=== PATIENT | female | born 1955 | race Caucasian/White ===

== ENCOUNTER 2017-05-08 16:41 | Inpatient (IN) ==
[2017-05-08] MEDS ORDERED: ASPIRIN PO STA (17:05)
--- NOTE | 2017-05-08 17:20 | ED EKG INTERP ---
This chart was entered by Coreen Garcia Scribe, acting as scribe for Virginie Mello MD. EKG Interpretation - EKG Time of EKG reading by physician:: 16:51 EKG Read and Signed by:: Virginie Mello EKG Interpretation (*Must complete 3 of following elements*): Abnormal Rate: 90 (T wave abnormality, consider inferior ischemia) Rhythm: NSR Attestation - Physician/ ESEQUIEL Attestation Patient care was provided by Advanced Practice Provider:: No The physician spent face to face time with patient:: Yes Advanced Practice Provider documentation review:: Supervising physician onsite and consulted in the evaluation and care of this patient. The physician did have a face to face encounter with the patient. This chart was documented by the indicated scribe, (Coreen Garcia Scribe) and accurately reflects the services I performed and decisions made by me, Virginie Mello MD, as attested by the provider's signature.
[2017-05-08 17:43] LABS: INR 0.95; PROTIME 9.9 Seconds (9.2-11.7); PTT 22.3 Seconds (22.0-36.0)
[2017-05-08 17:44] LABS: HEMOGLOBIN 5.3 g/dL (12.0-16.0)
[2017-05-08 17:45] LABS: BASO% 0.6 % (0.0-0.8); EOS# 0.16 X1000 (0.0-0.7); EOS% 2.3 % (0.0-10.0); HEMATOCRIT 18.2 % (37.0-47.0); IMM GRAN# 0.05 X1000 (0.0-0.04); IMM GRAN% 0.7 % (0.0-0.5); LYMPH# 1.42 X1000 (1.2-3.4); LYMPH% 20.5 % (20.5-51.1); MCH 26.6 PG (27-31); MCHC 29.1 g/dL (33-37); MCV 91.5 FL (81-99); MONO# 0.36 X1000 (0.11-0.59); MONO% 5.2 % (1.7-9.3); MPV 8.9 FL (7.4-10.4); NEUT% 70.7 % (42.2-75.2); PLT 311 X1000 (130-400); RBC 1.99 XMIL (4.2-5.4)
[2017-05-08 17:47] LABS: MANUAL DIFF NEEDED? NO
[2017-05-08] MEDS ORDERED: BENADRYL PO ONE (17:56)
[2017-05-08 18:02] LABS: AGAP 12; ALBUMIN 3.8 g/dL (3.5-5.0); ALKALINE PHOSPHATASE 77 U/L (32-104); BUN 28 mg/dL (8-22); CALCIUM 8.6 mg/dL (8.8-10.2); CHLORIDE 97 mmol/L (98-107); CK PROFILE 38 U/L (24-173); COSMO 278; GOT 11 U/L (10-30); GPT 12 U/L (10-36); MAGNESIUM 1.7 mg/dL (1.5-2.7); POTASSIUM 4.2 mmol/L (3.5-5.1); SODIUM 135 mmol/L (136-145); TCO2 26 mmol/L (25-35); TOTAL BILIRUBIN 0.14 mg/dL (0.20-1.00); TOTAL PROTEIN 6.3 g/dL (6.3-8.3)
--- NOTE | 2017-05-08 18:02 | PROVIDER DOCUMENTATION ---
HPI-Abdominal Pain/GI Problem - General Chief Complaint: Shortness of Breath Stated Complaint: CP/SOB Time Seen by Provider: 05/08/17 17:34 Source: patient Allergies/Adverse Reactions: Patient Allergies Allergy/AdvReac Type Severity Reaction Status Date / Time morphine Allergy Mild RASH Verified 05/08/17 18:05 sitagliptin [From Januvia] Allergy SOB, Verified 05/08/17 18:05 muscle weakness hydrocodone bitartrate * AdvReac Intermediate NAUSEA/VOMI Verified 05/08/17 18: 05 [From Lorcet 10] TING ibuprofen AdvReac Mild dizzy Verified 05/08/17 18:05 Home Medications: Home Medication List Medication Instructions Recorded Confirmed Last Taken Type Metformin [Glucophage] 1,000 mg PO BID #60 tablet 05/06/14 05/08/17 05/08/17 09: 30 Rx Hydrochlorothiazide 25 mg PO DAILY 01/14/16 05/08/17 05/08/17 09:30 History Pravastatin Sodium 40 mg PO QHS 01/14/16 05/08/17 05/07/17 21:00 History Allopurinol 0 mg PO DAILY 05/08/17 05/08/17 05/08/17 09:30 History Budesonide/Formoterol Fumarate 10.2 gm IH BID 05/08/17 05/08/17 Unknown History [Symbicort 160-4.5 Mcg Inhaler] Oxycodone HCl/Acetaminophen 1 each PO Q8HR PRN 05/08/17 05/08/17 Unknown History [Percocet 10-325 mg Tablet] Quetiapine Fumarate [Seroquel] 300 mg PO QHS 05/08/17 05/08/17 05/07/17 21:00 History - History of Present Illness-ABD Nature of Presenting Problems: Mrs Kramer presents with a one week history of shortness of breath, chest pain and black tarry stools. She has had previous episodes of bleeding in the past where she required blood transfusions. She is a chronic smoker and diabetic. Patient will be admitted for colonoscopy and blood transfusion. Quality of Pain: reports: dull (worse with exertion) Severity in ED: reports: mild Onset/Duration: reports: gradual Timing: reports: still present Modifying Factors: improves with: movement Dark Stools Present?: reports: maroon, black, tarry Rectal Bleeding: denies: blood streaks on stool, bloody diarrhea Rectal Pain: reports: none Emesis Description: reports: none Bruising or Bleeding Gums?: No Similar Symptoms Previously?: Yes Recently seen or treated by another doctor?: No Review of Systems - Adult - REVIEW OF SYSTEMS - ADULT Constitutional: reports: no symptoms reported, fatique. denies: chills, fever Eyes: reports: no symptoms reported Ears, Nose, Mouth & Throat: reports: no symptoms reported Cardiovascular: reports: chest pain Respiratory: reports: dyspnea on exertion, shortness of breath. denies: hemoptysis Gastrointestinal: reports: see HPI (Black tarry stools) Genitourinary: reports: no symptoms reported Musculoskeletal: reports: no symptoms reported Integumentary: reports: no symptoms reported Neurological: reports: no symptoms reported Psychiatric: reports: no symptoms reported Endocrine: reports: no symptoms reported Hematologic/Lymphatic: reports: no symptoms reported Allergic/Immunologic: reports: no symptoms reported All Other Systems: Reviewed and Negative Past History - Adult - PAST MEDICAL HISTORY-ADULT Review of Records: reports: Old Records Reviewed, Nursing Assessment Review, Medications Reviewed, Social history reviewed & non-contributory. Major Childhood Illnesses: reports: denies history Cardiovascular: reports: HTN Respiratory: reports: COPD Gastrointestinal: reports: denies history Obstetrical/Gynecological: reports: denies history Genitourinary: reports: denies history Musculoskeletal: reports: denies history Neurological: reports: denies history Psychiatric: reports: anxiety Endocrine/Immune: reports: Diabetes Other Conditions: reports: denies history - PRIOR SURGERIES/PROCEDURES Surgical/Procedure History: reports: appendectomy, BTL, tonsillectomy - PRIOR HOSPITALIZATIONS Prior Hospitalizations: reports: none - IMMUNIZATION STATUS Childhood Immunizations: See Nurse Assessment Flu Vaccine: See Nurse Assessment - FAMILY HISTORY Family History: reviewed, not pertinent - SOCIAL HISTORY Smoking: cigarettes Provider spent 3-5 mins advising pt. on dangers of tobacco.: Discussed manners to quit use, and f/u contacts for add'l counseling. Physical Exam-General - PHYSICAL EXAM-ADULT Initial Vital Signs Reviewed: Yes - CONSTITUTIONAL General Appearance: alert (pale), no apparent distress - EYES Eyes: PERRL/EOMI - HEAD, EARS, NOSE, MOUTH & THROAT HENMT: normocephalic/atraumatic - NECK Neck: non-tender - RESPIRATORY Respiratory: chest non-tender, lungs clear - CARDIOVASCULAR Cardiovascular: normal peripheral pulses, regular rate, rhythm - GASTROINTESTINAL (ABDOMEN) Abdominal Exam: normal bowel sounds, non tender, soft - LYMPHATIC Lymphatic: no adenopathy - MUSCULOSKELETAL Extremity: normal range of motion - SKIN Integumentary: pallor - NEUROLOGIC Neurologic: grossly normal - PSYCHIATRIC Psych/Mental Status: normal mood/affect, normal thought content, normal thought process Progress - PLAN OF CARE/RESULTS Progress/Plan/Lab Results: Vital Signs - 8 hr 05/08/17 17:01 Temperature 98.5 F Pulse Rate 93 H Respiratory Rate 22 Blood Pressure 132/79 O2 Sat by Pulse Oximetry 98 Laboratory Results - last 24 hr 05/08/17 05/08/17 05/08/17 16:57 17:02 17:02 WBC 6.92 RBC 1.99 L Hgb 5.3 L* Hct 18.2 L MCV 91.5 MCH 26.6 L MCHC 29.1 L RDW Std Deviation 15.2 H Plt Count 311 MPV 8.9 Immature Gran % (Auto) 0.7 H Neut % (Auto) 70.7 Lymph % (Auto) 20.5 Mcdonald % (Auto) 5.2 Eos % (Auto) 2.3 Baso % (Auto) 0.6 Immature Gran # (Auto) 0.05 H Neut # (Auto) 4.89 Lymph # (Auto) 1.42 Mcdonald # (Auto) 0.36 Eos # (Auto) 0.16 Baso # (Auto) 0.04 Segmented Neutrophils Not Reportable PT 9.9 INR 0.95 PTT (Actin FS) 22.3 POC Glucose 153 H Orders Category Date Time Status Cardiac Monitoring DIRECTED Care 05/08/17 17:05 Active FSBS [Finger Stick Blood Sugar (ED)] DIRECTED Care 05/08/17 17:07 Active Oxygen Therapy- ED Nursing DIRECTED Care 05/08/17 17:05 Active Saline Loc NOW Care 05/08/17 17:05 Active Transfuse .Give-Transfuse Care 05/08/17 17:56 Active CHEST-1 VIEW [RAD] Stat Exams 05/08/17 17:05 Taken CBC WITH ELECTRONIC DIFF [HEME] Stat Lab 05/08/17 17:02 Completed CK PROFILE [SP CHEM] Stat Lab 05/08/17 17:02 Received COMPREHENSIVE METABOLIC PANEL [CHEM] Stat Lab 05/08/17 17:02 Received D-DIMER [CHEM] Stat Lab 05/08/17 17:02 Received MAGNESIUM [CHEM] Stat Lab 05/08/17 17:02 Received PRBC [IRRADIATED LRPC (RED CELLS)] [BBK] Stat Lab 05/08/17 17:57 Uncollected PRO B-NATRIURETIC PEPTIDE Stat Lab 05/08/17 17:02 Received PROTIME WITH INR [COAG] Stat Lab 05/08/17 17:02 Completed PTT [COAG] Stat Lab 05/08/17 17:02 Completed TROPONIN T Stat Lab 05/08/17 17:02 Received TYPE & SCREEN [BBK] Stat Lab 05/08/17 17:53 Uncollected Aspirin Med 05/08/17 17:05 Discontinued 325 mg PO STAT STA Diphenhydramine [Benadryl] Med 05/08/17 17:56 Discontinued 50 mg PO PREMED ONE EKG [EKG] Stat Ther 05/08/17 17:05 Ordered Result Diagrams: 05/08/17 17:02 05/08/17 17:02 - REASSESSMENT Reassessment #1 Time Reassessed: 18:12 (Ordered 3 units of PRBC - informed patient that she will be admitted for need of colonoscopy.) Reassessment #2 Time Reassessed: 18:39 (Patient stable. Discussed with Dr. Gorman whom will admit patient to the hospital. Currently patient is stable and in no acute distress. ) Departure - Departure Date of Disposition Decision: 05/08/17 Time of Disposition Decision: 18:13 DIAGNOSIS: Upper GI bleed Disposition: ADMITTED INPATIENT 09 Certified Medical Emergency: Emergent Condition: Serious Referrals and Follow-Ups: Pito Montenegro [Primary Care Provider] - - Critical Care Note This patient required my direct & personal management of CC.: No Attestation - Physician/ ESEQUIEL Attestation The physician spent face to face time with patient:: Yes Advanced Practice Provider documentation review:: Supervising physician onsite and consulted in the evaluation and care of this patient. The physician did have a face to face encounter with the patient.
--- NOTE | 2017-05-08 18:03 | Diag Imaging Result Doc PS360 ---
EXAM: CHEST-1 VIEW - 05/08/2017 HISTORY: CP TECHNIQUE: Portable chest 5:38 PM COMPARISON: 01/24/2016 FINDINGS: Heart size appears within normal limits. There is mild prominence of vascular interstitial markings, some which appears to be chronic. There is no dense consolidation, substantial pleural effusion, or pneumothorax identified. IMPRESSION: Mild prominence of vascular interstitial markings, some which appears to be chronic. Superimposed mild pulmonary edema cannot be excluded. Electronically signed by Kendall Venegas 05/08/2017 6:01 PM
[2017-05-08] MEDS ORDERED: PROTONIX IV SCH (18:15)
[2017-05-08] MEDS ORDERED: SODIUM CHLORIDE 0.9% INJ SCH (18:15)
[2017-05-08] MEDS ORDERED: BENADRYL ONE (19:22)
[2017-05-08] MEDS ORDERED: DILAUDID IV PRN (20:27)
[2017-05-08] MEDS ORDERED: PROTONIX 80 MG in NS 80 ML IV ONE (20:34)
[2017-05-08] MEDS ORDERED: DILAUDID ONE (23:07)
[2017-05-08] MEDS: PROTONIX 80 MG in NS 80 ML IV SCH (23:15)
[2017-05-08] MEDS ORDERED: NS 500 ML IV ONE (23:23)
[2017-05-08] MEDS ORDERED: DUONEB (A & A) INH PRN (23:35)
[2017-05-08] MEDS ORDERED: NS 1,000 ML IV ONE (23:35)
[2017-05-09] MEDS: HUMALOG SUBQ SCH ×5 (00:02→21:58)
[2017-05-09 00:16] LABS: HEMATOCRIT 23.9 % (37.0-47.0); HEMOGLOBIN 7.4 g/dL (12.0-16.0)
[2017-05-09 00:55] LABS: IRON SATURATION 4 %; TIBC 431 ug/dL; TOTAL IRON 16 ug/dL (49-151); UNBOUND IRON 415 ug/dL (112-346)
[2017-05-09 01:05] LABS: FERRITIN 12 ng/mL (13-150)
[2017-05-09] MEDS ORDERED: OFIRMEV 1000 MG/ISOTONIC SOLN 1,000 MG/100 ML BOTTLE IV ONE (02:02)
[2017-05-09 02:19] LABS: URINE CULTURE NEEDED? NO; URINE MICRO REVIEW NEEDED? NO; URINE SOURCE CLEAN CATCH
[2017-05-09 02:23] LABS: BILIRUBIN URINE NEGATIVE (NEGATIVE); BLOOD URINE NEGATIVE (NEGATIVE); COLOR YELLOW; GLUCOSE URINE NEGATIVE (NEGATIVE); LEUKOCYTES URINE NEGATIVE (NEGATIVE); NITRITE URINE NEGATIVE (NEGATIVE); PROTEIN URINE NEGATIVE (NEGATIVE); SP GRAVITY URINE 1.015; TURBIDITY URINE CLEAR (CLEAR); UR EPITHELIAL CELLS <10 /HPF (<10); URINE BACTERIA NEGATIVE /HPF; URINE RBC <10 /HPF (<10); URINE WBC <10 /HPF (<10); UROBILINOGEN URINE NORMAL (NORMAL)
[2017-05-09] MEDS ORDERED: NS 500 ML ONE (02:51)
--- NOTE | 2017-05-09 03:36 | HISTORY AND PHYSICAL ---
PRIMARY CARE PROVIDER: Dr. Montenegro. TIME: 8 p.m. CHIEF COMPLAINT: Shortness of breath. HISTORY OF PRESENT ILLNESS: Ms. Kramer is a 61-year-old, female with a past medical history of COPD, diabetes mellitus type 2, hypertension, schizophrenia, and previous gastrointestinal bleeding. It does appear back in January of 2013 that the patient was admitted for gastrointestinal bleeding. This was thought at first to be an upper GI bleed, though upon reviewing the patient's EGD report, it does appear that they found esophageal ulcers and gastritis as well as duodenitis but no active or recent findings of bleeding. She did subsequently undergo a colonoscopy a few days later for which colon polyps were found and removed, though there was no evidence of active or recent bleeding as well. The patient states that for 1-2 weeks that she has had increasing fatigue and shortness of breath. The patient does state that she is supposed to be on home O2 nasal cannula at 2 L all the time but normally only wears this at night. She states that over the past week and a half, her shortness of breath and use of her oxygen has increased. She states now that any time that she gets up and walks a very short distance, such as to the bathroom, she becomes very short of breath. She also reports some lightheadedness and dizziness. She does report onset of intermittent melena over the past week as well and reports a lower abdominal pain that is intermittent and seems to be worse when she is having a bowel movement. She reports this is a pressure and sharp type pain in nature, though she denies any nausea or vomiting. The patient states that she does have frequent problems with swelling in her legs and does take Lasix as needed for this. She also reports that she normally takes a baby aspirin 81 mg daily, though has only taken this approximately 3 times in the past week. She denies any other [id number] medication use and has not had any recent changes in her medicines except for a new prescription for Januvia for which she states that she stopped taking approximately 2 weeks ago due to she felt as though it was making her not feel well. She denies any chest pain. She did report a slight headache with her dizziness as well. She denies any cough, fever, body aches, or chills. She reports that she normally has a bowel movement about 3 times per week and has not had a significant increase in this at this time. She denies any dysuria or urinary frequency other than her neuropathy pain in her legs and her reported history of having frequent problems with swelling. She denies any other pain, numbness, or tingling in the extremities. Upon evaluation in the ER, the patient was found to be anemic with a hemoglobin of 5.3 and hematocrit of 18.2. A Hemoccult stool has not performed at this time. We are awaiting those results, though given the patient's report of melena, we suspect an upper gastrointestinal bleed as well as given her history of a previous GI bleed and findings of esophageal ulcers, gastritis, and duodenitis. The ER physician did notify Dr. Rg of the patient and he is aware. A consult has been placed for him. We will transfuse the patient at this time and will admit her for further treatment and evaluation of upper gastrointestinal bleeding. REVIEW OF SYSTEMS: A 12 point review of systems was conducted with the patient and all were negative except for pertinent positives mentioned above in the HPI. PAST MEDICAL HISTORY: 1. Diabetes mellitus type 2. 2. Chronic respiratory failure. 3. COPD, currently on home oxygen with nasal cannula at 2 L. 4. Hypertension. 5. Schizophrenia. 6. History of previous gastrointestinal bleeding. 7. History of colon polyps. 8. Esophageal ulcer. 9. Gastritis. 10. Duodenitis. 11. Pancreatitis. 12. Nicotine dependence. PAST SURGICAL HISTORY: 1. Appendectomy. 2. Tubal ligation. 3. Tonsillectomy. 4. EGD. 5. Colonoscopy. SOCIAL HISTORY: The patient is a current smoker. She reports that for 41 years , she did smoke up to 3 to 4 packs of cigarettes per day, though in the last 3-4 weeks, she has weaned herself down to a half a pack at this time. She denies any alcohol or illicit drug use. FAMILY HISTORY: Positive for her mother having a history of larynx cancer. Her father had a history of cirrhosis of the liver secondary to alcohol abuse. There is a history of brain cancer in 1 of her grandmothers. ALLERGIES: Patient reports allergies to morphine, Januvia, Lorcet, and ibuprofen. HOME MEDICATIONS: 1. Allopurinol 1 p.o. daily. At this time, the patient does not know the exact dosage strength. 2. Symbicort 160/4.5 mcg inhaler 1 puff inhaled daily. 3. Hydrochlorothiazide 25 mg p.o. daily. 4. Metformin 1000 mg p.o. b.i.d. 5. Percocet 10 mg p.o. q.8 hours p.r.n. for pain. 6. Pravastatin 40 mg p.o. at bedtime. 7. Seroquel 300 mg p.o. at bedtime. 8. Aspirin 81 mg p.o. daily. 9. Lasix that the patient reports that she takes as needed for swelling in her legs. DIAGNOSTIC DATA/LABORATORY RESULTS: White blood cell count 6.92, hemoglobin 5.3 , hematocrit 18.2, platelet count 311,000. PT 9.9, INR 0.95, PTT 22.3. D-dimer 1.17. Sodium 135 , potassium 4.2, chloride 97, bicarb 26, BUN 28, creatinine 0.8, glucose 137, calcium 8.6, magnesium 1.7. Liver function tests are within normal limits. CK 38, troponin less than 0.01. ProBNP is 290. EKG showed normal sinus rhythm with a T-wave abnormality, at a rate of 90 with a QTc of 457. Chest x-ray showed mild prominence of vascular interstitial markings, some of which appear to be chronic. Superimposed mild pulmonary edema cannot be excluded. PHYSICAL EXAMINATION: VITAL SIGNS: Temperature 98.6 degrees, heart rate 84, respirations 16, blood pressure 121/70, oxygen saturation is 99% on nasal cannula at 2 L. GENERAL: Ms. Kramer is a pleasant, 61-year-old, female who is resting comfortably on the ER stretcher. She was in no acute distress. She was awake, alert, and able to answer all questions appropriately. HEENT: Head is atraumatic, normocephalic. Pupils are equal, round, reactive to light, were 3 mm bilaterally and brisk. Subconjunctivae were slightly pale. Oral mucosa is moist. Oropharynx is clear. NECK: Supple. Trachea midline. No JVD noted. No carotid bruits noted upon auscultation bilaterally. CARDIOVASCULAR: Patient has normal S1, S2. No murmurs, gallops, or rubs appreciated with a regular rate and rhythm. PULMONARY: Patient has symmetrical chest expansion bilaterally. Lung sounds were clear in upper lung brand, though it appeared to be slightly diminished in bilateral bases. ABDOMEN: Soft, nontender, nondistended. Bowel sounds are present in all 4 quadrants, were slightly hyperactive. EXTREMITIES: No cyanosis or clubbing noted. The patient did have some mild edema noted in bilateral feet, though this was only pitting in her left lower extremity from approximately ankle down. It was 1+. Other than this, all other extremities were within normal limits. Pulse, motor, and sensory are intact. Pedal pulses were difficult to palpate due to swelling in her lower extremities, though were easily obtainable at dorsalis pedis as well as posterior tibialis with a venous Doppler. Capillary refill was less than 3. INTEGUMENTARY: The patient's skin is warm, dry, and intact, though she does appear to be slightly pale upon examination. NEUROLOGICAL: Patient is alert and oriented x4. Cranial nerves 2-12 are grossly intact. ASSESSMENT AND PLAN: 1. Upper gastrointestinal bleed. Given that the patient is having melena, we suspect that this is upper gastrointestinal bleeding. She has been placed on a Protonix drip at this time. She was found to be quite anemic. She has received 2 units of packed red blood cells. We will repeat a hemoglobin and hematocrit after this has been transfused. We will monitor her hemodynamic status closely. At this time, her blood pressure is within normal limits. We will also provide her with intravenous hydration, normal saline at 100 mL per hour. We have placed a consult with Dr. Rg. We will await his evaluation and further recommendations. 2. Anemia. This is likely secondary to her acute gastrointestinal bleeding, though we will do an anemia profile and we will continue to monitor this closely. 3. Diabetes mellitus type 2. The patient will be nothing per oral so we will place her on a sliding scale lispro insulin per low-dose protocol and we will continue to follow. 4. Chronic obstructive pulmonary disease. We have placed orders for DuoNeb treatments as needed. We will continue her oxygen therapy. 5. Hypertension. At this time, the patient's blood pressure is within normal limits and given her gastrointestinal bleeding, we will hold off on administering any antihypertensive medications unless her blood pressure becomes elevated. 6. Nicotine dependence. The patient has been counseled on the importance of smoking cessation. We will continue to do this throughout her admission and upon discharge. At this time, I did offer the patient a nicotine patch. Also, I would like to note that the patient's D-dimer was slightly elevated at 1.17. The patient did present with shortness of breath and an increased need for her oxygen. I did ask the patient whether or not she had a history of pulmonary embolism. She denied this, though looking back, I did notice that her D-dimer was elevated upon a previous hospital admission in August of 2013. Upon reviewing her radiology studies, there was a CTA of the pulmonary arteries performed on 09/02/2013 for which it was noted that a pulmonary emboli in the right lower lobe was present. This will need to be re-evaluated once the patient's gastrointestinal bleeding has resolved. At this time, anticoagulation use would be contraindicated due to her current bleeding, though we will consider doing a CTA of pulmonary arteries once the patient's current active gastrointestinal bleeding has resolved and we will continue to follow this. We have placed an order for BLE venous doppler to rule out DVT. If venous doppler studies are negative we will place SCDs or RHYS hose for DVT prophylaxis. Further orders and recommendations pending hospital course, diagnostic studies, and physician evaluation. Dictated by GIOVANNY Gautam for Reyes Padilla MD cc: Reyes Padilla MD MTDD
[2017-05-09] MEDS ORDERED: NICODERM PATCH TD PRN (04:20)
--- NOTE | 2017-05-09 06:38 | EKG Report ---
Test Performed on : 05/08/2017 4:51:50 PM Test Reason : Chest Pain Blood Pressure : / mmHG Vent. Rate : 090 BPM Atrial Rate : 090 BPM P-R Int : 148 ms QRS Dur : 082 ms QT Int : 374 ms P-R-T Axes : 074 062 001 degrees QTc Int : 457 ms Normal sinus rhythm. T wave abnormality, consider inferior ischemia Abnormal ECG When compared with ECG of 08-MAY-2017 16:51, (Unconfirmed) No significant change was found Unconfirmed Result
[2017-05-09] MEDS: PROTONIX 80 MG in NS 80 ML IV SCH ×2 (07:13→16:52)
[2017-05-09 08:37] LABS: MANUAL DIFF NEEDED? NO
--- NOTE | 2017-05-09 09:03 | PROGRESS NOTE ---
DATE: 05/09/2017 SUBJECTIVE: She feels much better than yesterday. Breathing is better. No pain. Did get a little rest last night. OBJECTIVE: General: She is awake, alert, and oriented x3. Vital signs: Temp 98.1 degrees, pulse 77, respirations 16, blood pressure 140/68. Lungs: Clear in all lung brand. Cardiovascular: Regular rhythm and rate without murmur or S3. Abdomen: Soft. Skin: Warm and dry. Intake and output: Urine output over a liter. LABS: Pending this morning. Hemoglobin was 5.3 when she presented and then later on in the day after a 2 unit transfusion it was 7.4 and 23 hematocrit. Blood sugars 115, 127. ASSESSMENT AND PLAN: 1. Upper gastrointestinal bleed. History of melena. She is on a Protonix drip. GI is to see. She got 2 units of packed red blood cells. Continue to follow hemoglobin and hematocrit. 2. Blood loss anemia from upper gastrointestinal bleed. 3. Diabetes mellitus type 2. Follow sugars, on pattern scale. 4. Chronic obstructive pulmonary disease. Aware. 5. Hypertension. 6. Nicotine dependence. 7. I noticed she had a D-dimer that was slightly elevated. In the past she had a D-dimer elevated back in August [address] angiogram at that time may have shown a right lower lobe emboli. So, we may want followed that but obviously right now we are not going to put her on any anticoagulant, but we will check noninvasives of her legs. I have reviewed orders. I do not see any change at this time. cc: Rakesh Lund MD
[2017-05-09 09:05] LABS: BASO% 0.3 % (0.0-0.8); EOS% 1.5 % (0.0-10.0); HEMATOCRIT 27.4 % (37.0-47.0); HEMOGLOBIN 8.8 g/dL (12.0-16.0); IMM GRAN# 0.04 X1000 (0.0-0.04); IMM GRAN% 0.6 % (0.0-0.5); LYMPH# 1.38 X1000 (1.2-3.4); LYMPH% 21.1 % (20.5-51.1); MCH 27.8 PG (27-31); MCHC 32.1 g/dL (33-37); MCV 86.4 FL (81-99); MONO# 0.35 X1000 (0.11-0.59); MONO% 5.3 % (1.7-9.3); MPV 8.7 FL (7.4-10.4); NEUT% 71.2 % (42.2-75.2); PLT 244 X1000 (130-400); RBC 3.17 XMIL (4.2-5.4)
[2017-05-09 09:10] LABS: AGAP 8; ALBUMIN 3.6 g/dL (3.5-5.0); ALKALINE PHOSPHATASE 71 U/L (32-104); BUN 22 mg/dL (8-22); CALCIUM 8.7 mg/dL (8.8-10.2); CHLORIDE 104 mmol/L (98-107); COSMO 282; GOT 10 U/L (10-30); GPT 11 U/L (10-36); POTASSIUM 4.9 mmol/L (3.5-5.1); SODIUM 139 mmol/L (136-145); TCO2 27 mmol/L (25-35); TOTAL PROTEIN 5.8 g/dL (6.3-8.3)
[2017-05-09 12:23] LABS: HEMATOCRIT 27.1 % (37.0-47.0); HEMOGLOBIN 8.7 g/dL (12.0-16.0)
--- NOTE | 2017-05-09 15:10 | CONSULTATION ---
DATE OF CONSULTATION: 05/09/2017 REASON FOR CONSULTATION: Severe anemia, questionable gastrointestinal bleed. HISTORY OF PRESENT ILLNESS: This is a 61-year-old, white female, who reports onset of symptoms approximately 1 week ago. She reports increasing fatigue and shortness of breath. She states she has had some chest pain. She usually has to wear oxygen and states that she usually wears it at night but has had to increase her oxygen use over the last week. She reports having black tarry stools over the last week and also has noticed some diarrhea. She denies nausea or vomiting. She does report a headache and some recent dizziness. She denies fever, denies hematemesis. She has a history of GI bleed in 2012. An EGD at that time showed esophageal ulcers and gastritis, with duodenitis. She had also had a colonoscopy during that time that showed colon polyps but no evidence of active bleeding. She was in the hospital last year in Jan, 2016 for abdominal pain and had another EGD that was normal. She takes an aspirin daily. She reports taking an occasional Aleve usually only once or twice a month. PAST MEDICAL HISTORY: Diabetes type 2, COPD, hypertension, schizophrenia, history of GI bleed in 2012, history of colon polyps. PAST SURGICAL HISTORY: Appendectomy, tubal ligation, tonsillectomy, EGD in 2015 and 2012, colonoscopy in 2012. ALLERGIES: Morphine causing rash. Januvia causing shortness of breath and weakness. Lorcet causing nausea, vomiting. Ibuprofen causing dizziness. HOME MEDICATIONS: 1. Seroquel 300 mg every night. 2. Pravastatin 40 mg every night. 3. Percocet 10/325 every 8 hours as needed. 4. Glucophage a 1000 mg twice daily. 5. Hydrochlorothiazide 25 mg daily. 6. Symbicort inhaler twice daily. 7. Allopurinol daily. SOCIAL HISTORY: Reports smoking a pack of cigarettes every 2 days. She denies alcohol use. She lives with significant other. She has 4 children. FAMILY HISTORY: Mother had larynx cancer. Father had history of cirrhosis related to alcohol abuse, history of brain cancer. REVIEW OF SYSTEMS: Per history and physical. PHYSICAL EXAMINATION: Vital Signs: Temperature 98.0 degrees, pulse 86, respirations 16, blood pressure 136/70. General: The patient is awake and alert in no acute distress. HEENT: Normocephalic, atraumatic. Pupils equal, round, reactive to light. Sclerae nonicteric. Cardiovascular: Regular rate and rhythm. Respiratory: Lung sounds essentially clear. Abdomen: Soft, nontender. Positive bowel sounds. Extremities: She has some lower extremity edema noted bilaterally. DIAGNOSTIC RESULTS: Laboratory: Hematology: White count 6.55, hemoglobin 8.7 , hematocrit 27.1, MCV 86.4, coagulation ProTime 9.9, INR 0.95. PTT 22.3. Chemistry: Sodium 139 , potassium 4.9, chloride 104, CO2 of 27. BUN 22, creatinine 0.8, glucose 120. Calcium 8.7, total protein 5.8, vitamin B12 of 207. Folate 11.6. Iron 16. TIBC 431. % saturation 4. Ferritin 12. Hemoccult stool was positive. Chest x-ray showed mild prominence of vascular interstitial markings. ASSESSMENT AND PLAN: 1. Severe anemia. Patient has received 3 units of packed red blood cells. 2. Melena. 3. Hemoccult-positive stool. 4. History of gastrointestinal bleed. 5. chronic obstructive pulmonary disease. 6. Diabetes. 7. Hypertension. Continue symptomatic treatment and supportive care. Continue to monitor hemoglobin and hematocrit. Monitor for active bleeding. Transfuse further packed red blood cells as needed. Will plan to proceed with an EGD tomorrow. Further plans will be made according to findings. I have discussed the procedure along with benefits and risks with the patient, and she wishes to proceed. We will allow clear liquid diet today, n.p.o. after midnight. I have discussed this case with Dr. Grayson. Thank you for this consultation. Dictated by GIOVANNY Huber for Jamison Grayson MD cc: GIOVANNY Walker MD [facility]
[2017-05-09] MEDS: DILAUDID IV PRN ×2 (16:46→23:24)
[2017-05-09 18:57] LABS: HEMATOCRIT 27.5 % (37.0-47.0); HEMOGLOBIN 8.8 g/dL (12.0-16.0)
[2017-05-10 01:26] LABS: HEMATOCRIT 29.6 % (37.0-47.0); HEMOGLOBIN 9.4 g/dL (12.0-16.0)
[2017-05-10] MEDS: DILAUDID IV PRN (04:06)
[2017-05-10] MEDS: ZOFRAN IV PRN (04:06)
[2017-05-10] MEDS: PROTONIX 80 MG in NS 80 ML IV SCH ×2 (04:06→13:19)
[2017-05-10] MEDS: HUMALOG SUBQ SCH ×4 (06:16→22:31)
--- NOTE | 2017-05-10 09:10 | PROGRESS NOTE ---
DATE: 05/10/2017 SUBJECTIVE: She said she does not feel real good today, has little bit of a headache. She is scheduled to get a colonoscopy, I believe, this morning. She would like to get back on her Percocet. OBJECTIVE: Temperature 98.4 degrees, pulse 69, respirations 16, blood pressure 146/68. Lungs are clear in all lung brand. Cardiovascular: Regular rhythm and rate without murmur or S3. Abdomen is soft. Skin is warm and dry. Blood sugars 127, 167, 107. ASSESSMENT AND PLAN: 1. Severe anemia. We have given her a transfusion of 3 units of blood. History of melena. Hemoccult positive stool. Plan is colonoscopy today. 2. Chronic obstructive pulmonary disease, fairly stable. Good air and gas exchange. 3. Diabetes mellitus. We will follow pattern sugars. 4. Hypertension. Will follow blood pressures. I reviewed her orders and lab. I do not see any change. She is on IV Protonix. Note: Hemoglobin is 9.4, hematocrit 29. She presented with a hemoglobin of 5.3. cc: Rakesh Lund MD
[2017-05-10] MEDS ORDERED: OFIRMEV 1000 MG/ISOTONIC SOLN 1,000 MG/100 ML BOTTLE IV PRN (12:41)
[2017-05-10] MEDS ORDERED: VERSED ONE (13:52)
[2017-05-10] MEDS ORDERED: DIPRIVAN 1% ONE (14:08)
--- NOTE | 2017-05-10 17:55 | OPERATIVE NOTE ---
PROCEDURE DATE: 05/10/2017 PROCEDURE: Esophagogastroduodenoscopy and biopsy. PREOPERATIVE DIAGNOSIS: 1. Profound anemia. 2. Chronic gastrointestinal bleed. POSTOPERATIVE DIAGNOSES: Esophagitis, otherwise normal esophagogastroduodenoscopy. MEDICATION: MAC as per Anesthesia. SCOPE: Olympus [id number]. HISTORY: This is a 61-year-old, white female, who was found to be anemic, and endoscopy was done to identify the etiology accordingly. DESCRIPTION OF PROCEDURE: Informed consent was obtained from the patient. Procedure risks, benefits, alternatives were explained in layman's terms. She understood. All her pertinent questions were answered. Patient was brought to the endoscopy unit and was premedicated as per Anesthesia. After adequate sedation, while she was lying in left lateral position, the gastroscope was introduced into the posterior pharynx and advanced under direct vision into the esophagus. Esophagus in the upper and middle part was normal. Distal esophagus at the GE junction which was noted at about 40 cm from the incisor. LA grade A esophagitis seen. No active bleeding seen. Biopsy was obtained using cold biopsy forceps. I did not see any varices, webs, rings. Scope was then passed through the esophagus into the stomach. The stomach was viewed in both straight and retroflexed views, which revealed normal cardia, fundus, body, and antrum. The scope was then passed through the normal pylorus into the duodenal bulb, and then 2nd part of duodenum. Both appeared to be normal. The scope was then removed. Patient tolerated the procedure with no complications noted. Patient was then transferred to the recovery area in a stable condition. IMPRESSION: Mild esophagitis. Otherwise, normal esophagogastroduodenoscopy. I did not see any pathology that would explain her profound anemia. RECOMMENDATION: Recommendation would be to continue proton pump inhibitor 40 mg every day and once she is stable enough, we will proceed with colonoscopy, but that can be done as an outpatient. cc: MD Rakesh Leblanc MD
[2017-05-10] MEDS ORDERED: PERCOCET-10 PO PRN (22:45)
[2017-05-11] MEDS: ZOFRAN IV PRN (06:58)
[2017-05-11] MEDS: HUMALOG SUBQ SCH ×3 (06:59→16:43)
[2017-05-11] MEDS ORDERED: PRILOSEC PO SCH ×2 (07:00)
--- NOTE | 2017-05-11 09:50 | VASCULAR LAB ---
PROCEDURE NAME: Venous U/S Bilateral Legs DATE OF EXAMINATION: 05/09/2017. CHARTER DRIVER: Aida. INDICATIONS: Bilateral edema with elevated D-dimer. REQUESTING PHYSICIAN: Reyes Padilla MD. FINDINGS: The deep and superficial veins of bilateral lower extremities were visualized along their course. All veins compressible with forward flow. No evidence of intraluminal thrombus. SUMMARY: No deep or superficial venous thrombosis in bilateral lower extremities. cc: Ben Fagan MD
[2017-05-11 16:13] VITALS: BP 154/54
--- NOTE | 2017-05-11 17:37 | DISCHARGE SUMMARY ---
ADMISSION DATE: 05/08/2017 DISCHARGE DATE: 05/11/2017 PRIMARY CARE: Dr. Montenegro. HISTORY OF PRESENT ILLNESS: This is a 61-year-old who presented on 05/08/2017. She has a past medical history of COPD, diabetes mellitus type 2, hypertension, schizophrenia, previous GI bleed. In January 2013 was admitted for gastrointestinal bleeding. Brought here with upper GI bleed though up on review of patient's EGD report says she had found esophageal ulcers and gastritis as well as duodenitis and the recent findings of bleeding and she did undergo a colonoscopy a few days later. Colon polyps were found and removed. For 1 or 2 weeks she has had increased fatigue and shortness of breath. She is supposed to be on home O2 nasal cannula. Normally only wears it at night but recently she has had to wear it more. On evaluation in emergency room she was anemic with hemoglobin 5.3, hematocrit 18. PAST MEDICAL HISTORY: 1. Diabetes mellitus type 2. 2. Chronic respiratory failure. 3. COPD. 4. Hypertension. 5. Schizophrenia. 6. Previous gastrointestinal ulcer. 7. Colon polyps. 8. Esophageal ulcer. 9. Gastritis. 10. Duodenitis. 11. Pancreatitis. 12. Nicotine dependence. PAST SURGICAL HISTORY: 1. Appendectomy. 2. Tubal ligation. 3. Tonsillectomy. 4. EGD and colonoscopy. HOSPITAL COURSE: The patient admitted with upper GI bleed. She did get noninvasive venous studies on 05/09/2017. She had no deep or superficial thrombosis. Dr. Grayson was consulted and severe anemia and gave her 3 units of blood and she was scheduled for EGD when stable. This was done on 05/10/2017. Found chronic gastrointestinal bleed, mild esophagitis. Recommend continue proton pump 40 mg every day and when she is stable can proceed with colonoscopy as an outpatient. She wanted to go home so we will let her go home on 05/11/2017. DISCHARGE MEDICATIONS: I am going to let her stay on Prilosec 40 mg a day. Nicotine patches she would like. Have her Seroquel 200 mg at bedtime, and she is supposed to be on metformin so will make sure she gets her metformin as well. She is supposed to be on Symbicort so I will get her prescriptions for those and she was taking oxycodone 10 mg q.8 h. p.r.n. and pravastatin 40 mg daily so we will see if we can get all that ready for her and she wants to go home. cc: Rakesh Lund MD
[2017-05-11] MEDS ORDERED: PROTONIX IV SCH (20:35)
[2017-05-11] MEDS ORDERED: SEROQUEL PO SCH (21:00)
== END 2017-05-11 18:26 | disposition home or self-care (01) ==
LOC: ED 16:41 → 4N 23:18 → SUATTDRO 23:18
PROVIDERS: ATTEND Emergency Medicine